=== PATIENT | female | born 1945 | race African-American/Black ===

== ENCOUNTER 2020-12-04 14:41 | Inpatient (IN) ==
--- NOTE | 2020-12-04 15:46 | Emergency Department Note ---
Impression & Plan Syncope, Hypokalemia, Hypocalcemia ED Provider Note INFORMANT: Patient ED PROVIDER(S): Jose Elizalde MD CHIEF COMPLAINT: Syncope PLAN: Disposition: Admitted Condition: Good Outpatient prescription management: none Referral: None MEDICAL DECISION MAKING: Patient presented to the emergency department because of a syncopal event. She was doing well and had a nonfocal examination in the ER. An ECG was performed and did not reveal any acute findings. The patient had a negative chest x-ray. Urinalysis was negative. Patient CBC was unremarkable. The patient chemistry panel was very concerning as she had hypocalcemia and hypokalemia of significant proportion. The patient and I discussed this. She was hydrated. The patient was given IV calcium as well as IV potassium. Given the events she needs further management in the hospital. Cardiac monitoring did not reveal any d ysrhythmia here. It is possible that she had some ill effects from her cyclobenzaprine but the electrolyte abnormalities will need further investigation. Consultation was made with the admitting hospitalist service. Patient was evaluated in the ER admitted for further management. Triage Nursing notes reviewed and agree them. Vital Signs: reviewed and remarkable for no significant abnormalities Differential diagnosis: Vasovagal event, dehydration, infection, hypoglycemia, electrolyte abnormalities, cardiac sources, intracerebral event, pulmonary embolism, seizure, toxicologic, neurologic, as well as other pathologies. Diagnostics interpreted by me: ECG:Rate:78 Rhythm:Normal sinus [place]:Normal QRS:Normal ST segements:No elevation or depression Other:No PACs or PVCs Cardiac Monitoring: Cardiac monitoring ordered by me: The patient was placed on continuous cardiac monitoring and observed. It revealed a normal sinus rhythm at 66 beats per minute without ectopy or evidence of dysrhythmia. Imaging studies: Chest x-ray. Findings: A chest x-ray was performed and revealed no pneumothorax, effusion, infiltrate, pulmonary edema, free air under the diaphragm, or wide mediastinum. Impression: No acute disease. HPI: The patient is a 75 year old female who presents to the Emergency Room with complaints of syncope. This started around 1330 today and is resolved. Patient reportedly briefly passed out or "fell asleep", nausea. Patient states she thought she was going to have an ocular migraine. She was seeing spots. She did not progress. She reportedly took a cyclobenzaprine at 1000. The patient also notes the following associated symptoms, feeling tired. The patient has been given no medication for relieving factors. Current pain is rated as 0/10. She was taking the muscle relaxer prescribed by urgent care for her back. Pt denies headache, fevers, chills, diaphoresis, visual changes, neck pain, chest pain, breathing difficulties, vomiting, abdominal pain, back pain, melena, h ematochezia, urinary symptoms, numbness, weakness, lymphadenopathy, rash, or other complaints. ROS: See above HPI for pertinent positives & negatives. A total of 10 systems reviewed and were otherwise negative. PAST MEDICAL HISTORY:See Below , kidney stones PAST SURGICAL HISTORY:See Below, FAMILY HISTORY:See Below SOCIAL HISTORY:See Below, retired HOME MEDICATIONS:See Below ALLERGIES:See Below VITALS:See Below PHYSICAL EXAMINATION: GENERAL: Awake, alert, well-appearing, in no distress HENT: Normocephalic, atraumatic. Oropharynx unremarkable. EYES: Normal conjunctiva. Sclera non-icteric. NECK: Inspection normal. Non-tender. Supple. No nuchal rigidity. FROM. No masses. RESPIRATORY: Clear to auscultation. No wheezes. No rales. Normal respiratory effort. CARDIAC: Normal rate. Normal rhythm. No murmurs. No rubs. Extremities warm and well perfused. Pulses equal. No JVD. GI: Soft, non-distended. No tenderness to palpation. No rebound or guarding. No masses. RECTAL: Deferred. MUSCULOSKELETAL: Atraumatic. Chest examination reveals no tenderness. The back is symmetrical on inspection without obvious abnormality. There is no CVA tenderness to palpation. No joint edema. LOWER EXTREMITIES: Calves are equal size bilaterally and non-tender. No edema. No discoloration. NEURO: Normal sensorium. No sensory or motor deficits noted. SKIN: No rash or jaundice noted. Jose Elizalde MD Past Med/Surg History Social History Smoking Status: Never smoker Feels Safe at Home: Yes Allergies Allergies Allergy/AdvReac Type Severity Reaction Status Date / Time caffeine AdvReac Intermediate Headache Verified 12/04/20 15:30 red dye AdvReac Intermediate Headache Verified 12/04/20 15:30 POLLEN Allergy Intermediate WATERY Uncoded 12/04/20 15:30 EYES, RUNNY NOSE, SNEEZING, COUGH Home Meds Home Medications Medication Instructions Recorded Confirmed amlodipine 5 mg tablet 5 mg PO DAILY 12/04/20 12/04/20 aspirin 81 mg tablet,delayed 81 mg PO DAILY 12/04/20 12/04/20 release cyclobenzaprine 10 mg tablet 5 - 10 mg PO TID PRN 12/04/20 12/04/20 famotidine 20 mg tablet 20 mg PO BID 12/04/20 12/04/20 multivitamin 1 tab PO DAILY 12/04/20 12/04/20 pravastatin 20 mg tablet 20 mg PO HS 12/04/20 12/04/20 prednisone 10 mg tablet 20 mg PO DAILY 12/04/20 12/04/20 Results & Data (ED) Vital Signs Vital Signs - 24 hr 12/04/20 14:45 12/04/20 15:08 12/04/20 16:43 Temperature 36.8 C Temperature Source Oral Pulse Rate 72 71 Pulse Rate from SpO2 Sensor 61 Pulse Rhythm Regular Pulse Strength Normal Respiratory Rate 16 22 Respiratory Effort / Characteristics Non-Labored Spontaneous Respiratory Depth Normal Respiratory Pattern Regular Blood Pressure 176/99 H 145/87 H Blood Pressure Mean 124 106 Blood Pressure Position Lying Pulse Oximetry 99 99 99 Oxygen Delivery Method Room Air Room Air Room Air Sepsis Recent Fever Within 48 Hours No Sepsis New/Unexplained Change in Mental Status N/A Sepsis Action Taken by Nursing No Action Required 12/04/20 17:21 12/04/20 17:30 12/04/20 17:45 Temperature Temperature Source Pulse Rate 66 75 76 Pulse Rate from SpO2 Sensor 67 74 76 Pulse Rhythm Pulse Strength Respiratory Rate 14 22 18 Respiratory Effort / Characteristics Respiratory Depth Respiratory Pattern Blood Pressure 145/91 H 145/87 H 142/87 H Blood Pressure Mean 109 106 105 Blood Pressure Position Pulse Oximetry 100 99 98 Oxygen Delivery Method Room Air Room Air Room Air Sepsis Recent Fever Within 48 Hours Sepsis New/Unexplained Change in Mental Status Sepsis Action Taken by Nursing 12/04/20 18:00 12/04/20 18:15 12/04/20 18:30 Temperature Temperature Source Pulse Rate 76 89 87 Pulse Rate from SpO2 Sensor 78 82 86 Pulse Rhythm Pulse Strength Respiratory Rate 15 18 17 Respiratory Effort / Characteristics Respiratory Depth Respiratory Pattern Blood Pressure 144/86 H 148/90 H 136/91 Blood Pressure Mean 105 109 106 Blood Pressure Position Pulse Oximetry 97 95 99 Oxygen Delivery Method Room Air Room Air Room Air Sepsis Recent Fever Within 48 Hours Sepsis New/Unexplained Change in Mental Status Sepsis Action Taken by Nursing 12/04/20 19:14 12/04/20 19:30 12/04/20 19:45 Temperature Temperature Source Pulse Rate 90 85 82 Pulse Rate from SpO2 Sensor 86 84 Pulse Rhythm Pulse Strength Respiratory Rate 22 17 18 Respiratory Effort / Characteristics Respiratory Depth Respiratory Pattern Blood Pressure 151/74 H 139/76 125/80 Blood Pressure Mean 99 97 95 Blood Pressure Position Pulse Oximetry 99 99 99 Oxygen Delivery Method Room Air Sepsis Recent Fever Within 48 Hours Sepsis New/Unexplained Change in Mental Status Sepsis Action Taken by Nursing 12/04/20 20:00 12/04/20 20:15 12/04/20 20:45 Temperature Temperature Source Pulse Rate 79 82 72 Pulse Rate from SpO2 Sensor 80 82 72 Pulse Rhythm Pulse Strength Respiratory Rate 14 17 15 Respiratory Effort / Characteristics Respiratory Depth Respiratory Pattern Blood Pressure 144/82 H 146/93 H 128/87 Blood Pressure Mean 102 110 100 Blood Pressure Position Pulse Oximetry 98 99 99 Oxygen Delivery Method Room Air Room Air Sepsis Recent Fever Within 48 Hours Sepsis New/Unexplained Change in Mental Status Sepsis Action Taken by Nursing 12/04/20 21:00 12/04/20 21:15 12/04/20 21:30 Temperature Temperature Source Pulse Rate 76 77 75 Pulse Rate from SpO2 Sensor 75 76 73 Pulse Rhythm Pulse Strength Respiratory Rate 24 13 15 Respiratory Effort / Characteristics Respiratory Depth Respiratory Pattern Blood Pressure 133/83 157/96 H 157/93 H Blood Pressure Mean 99 116 114 Blood Pressure Position Pulse Oximetry 99 99 98 Oxygen Delivery Method Room Air Room Air Room Air Sepsis Recent Fever Within 48 Hours Sepsis New/Unexplained Change in Mental Status Sepsis Action Taken by Nursing 12/04/20 21:46 12/04/20 21:50 12/04/20 22:00 Temperature Temperature Source Pulse Rate 84 77 80 Pulse Rate from SpO2 Sensor Pulse Rhythm Pulse Strength Respiratory Rate 15 24 13 Respiratory Effort / Characteristics Respiratory Depth Respiratory Pattern Blood Pressure Blood Pressure Mean Blood Pressure Position Pulse Oximetry 99 99 Oxygen Delivery Method Room Air Room Air Sepsis Recent Fever Within 48 Hours Sepsis New/Unexplained Change in Mental Status Sepsis Action Taken by Nursing 12/04/20 22:10 Temperature Temperature Source Pulse Rate 91 H Pulse Rate from SpO2 Sensor Pulse Rhythm Pulse Strength Respiratory Rate 21 Respiratory Effort / Characteristics Respiratory Depth Respiratory Pattern Blood Pressure Blood Pressure Mean Blood Pressure Position Pulse Oximetry 99 Oxygen Delivery Method Room Air Sepsis Recent Fever Within 48 Hours Sepsis New/Unexplained Change in Mental Status Sepsis Action Taken by Nursing Laboratory Data Result diagrams: 12/04/20 17:16 12/04/20 17:16 Lab Results 12/04/20 12/04/20 12/04/20 Range/Units 16:20 17:16 17:16 WBC 5.32 (4.8-10.8) K/uL RBC 4.26 (4.2-5.4) M/uL Hgb 12.7 (12.0-16.0) g/dL Hct 39.1 (37-47) % MCV 91.8 (80-100) fL MCH 29.8 (25-34) pg MCHC 32.5 (32-36) g/dL RDW Std Deviation 44.0 (36.4-46.3) fL RDW Coeff of Elinor 13.3 (11.5-14.5) % Plt Count 148 (130-400) K/uL MPV 10.9 H (7.4-10.4) fL Immature Gran % (Auto) 0.6 % Neut % (Auto) 62.3 % Lymph % (Auto) 29.3 % Richardson % (Auto) 6.8 % Eos % (Auto) 0.6 % Baso % (Auto) 0.4 % Neut # (Auto) 3.32 (1.4-6.5) K/uL Lymph # (Auto) 1.56 (1.2-3.4) K/uL Richardson # (Auto) 0.36 (0.11-0.59) K/uL Eos # (Auto) 0.03 (0-0.5) K/uL Baso # (Auto) 0.02 (0-0.2) K/uL Immature Gran # (Auto) 0.03 H (0.00-0.02) K/uL Sodium 148 H (136-145) mmol/L Potassium 2.4 L* (3.5-5.1) mmol/L Chloride 122 H (98-107) mmol/L Carbon Dioxide 21 (21-32) mmol/L Anion Gap 5.0 (3-11) BUN 10 (7-18) mg/dl Creatinine 0.38 L (0.6-1.2) mg/dl Est Cr Clr Drug Dosing 96.8 ml/min Est GFR ( Amer) 121.8 ml/min Est GFR (Non-Af Amer) 105.1 ml/min BUN/Creatinine Ratio 27.2 H (10-20) Glucose 75 (70-99) mg/dl Calcium 5.4 L* (8.5-10.1) mg/dl Magnesium 1.7 L (1.8-2.4) mg/dl Total Bilirubin 0.2 (0.2-1) mg/dl AST 11 L (15-37) U/L ALT 13 (12-78) U/L Alkaline Phosphatase 36 L (45-117) U/L Troponin I < 0.015 (0-0.045) ng/ml Total Protein 4.4 L (6.4-8.2) gm/dl Albumin 2.2 L (3.4-5.0) gm/dl Globulin 2.2 L (2.5-4.0) gm/dl Albumin/Globulin Ratio 1.0 (0.9-2) TSH 1.250 (0.300-4.500) uIu/ml Urine Color Yellow Urine Appearance Clear (Clear) Urine pH 8.0 H (4.5-7.5) Ur Specific [place] 1.012 (1.000-1.030) Urine Protein Negative (Negative) Urine Glucose (UA) Negative (Negative) Urine Ketones Negative (Negative) Urine Blood Negative (Negative) Urine Nitrite Negative (Negative) Urine Bilirubin Negative (Negative) Urine Urobilinogen Negative (Negative) Ur Leukocyte Esterase Negative (Negative) COVID-19 Eval Order SARS-CoV-2 (PCR) (Negative) 12/04/20 12/04/20 Range/Units 19:00 19:00 WBC (4.8-10.8) K/uL RBC (4.2-5.4) M/uL Hgb (12.0-16.0) g/dL Hct (37-47) % MCV (80-100) fL MCH (25-34) pg MCHC (32-36) g/dL RDW Std Deviation (36.4-46.3) fL RDW Coeff of Elinor (11.5-14.5) % Plt Count (130-400) K/uL MPV (7.4-10.4) fL Immature Gran % (Auto) % Neut % (Auto) % Lymph % (Auto) % Richardson % (Auto) % Eos % (Auto) % Baso % (Auto) % Neut # (Auto) (1.4-6.5) K/uL Lymph # (Auto) (1.2-3.4) K/uL Richardson # (Auto) (0.11-0.59) K/uL Eos # (Auto) (0-0.5) K/uL Baso # (Auto) (0-0.2) K/uL Immature Gran # (Auto) (0.00-0.02) K/uL Sodium (136-145) mmol/L Potassium (3.5-5.1) mmol/L Chloride (98-107) mmol/L Carbon Dioxide (21-32) mmol/L Anion Gap (3-11) BUN (7-18) mg/dl Creatinine (0.6-1.2) mg/dl Est Cr Clr Drug Dosing ml/min Est GFR ( Amer) ml/min Est GFR (Non-Af Amer) ml/min BUN/Creatinine Ratio (10-20) Glucose (70-99) mg/dl Calcium (8.5-10.1) mg/dl Magnesium (1.8-2.4) mg/dl Total Bilirubin (0.2-1) mg/dl AST (15-37) U/L ALT (12-78) U/L Alkaline Phosphatase (45-117) U/L Troponin I (0-0.045) ng/ml Total Protein (6.4-8.2) gm/dl Albumin (3.4-5.0) gm/dl Globulin (2.5-4.0) gm/dl Albumin/Globulin Ratio (0.9-2) TSH (0.300-4.500) uIu/ml Urine Color Urine Appearance (Clear) Urine pH (4.5-7.5) Ur Specific [place] (1.000-1.030) Urine Protein (Negative) Urine Glucose (UA) (Negative) Urine Ketones (Negative) Urine Blood (Negative) Urine Nitrite (Negative) Urine Bilirubin (Negative) Urine Urobilinogen (Negative) Ur Leukocyte Esterase (Negative) COVID-19 Eval Order Covid19 at [facility] SARS-CoV-2 (PCR) NEGATIVE (Negative) Administered Medications Discontinued Medications Calcium Gluconate (Calcium Gluconate 10% 10 Ml Vial) 1,000 mg IV NOW STA Stop: 12/04/20 18:06 Last Admin: 12/04/20 19:00 Dose: 1,000 mg Documented by: [id number] Calcium Gluconate (Calcium Gluconate 1000 Mg/60 Ml Nss) Confirm Administered Dose 1,000 mg IV .STK-MED ONE Stop: 12/04/20 18:28 Last Admin: 12/04/20 18:30 Dose: Not Given Documented by: [id number] Potassium Chloride (K Evaristo / Wtr) 10 meq in 100 mls @ 100 mls/hr IV ONE ONE Stop: 12/04/20 18:56 Last Infusion: 12/04/20 19:30 Dose: 0 mls/hr Documented by: [id number] Admin: 12/04/20 18:29 Dose: 100 mls/hr Documented by: [id number] Sodium Chloride (Nss 1000ml) 1,000 mls @ 75 mls/hr IV .[id number] STA Stop: 12/05/20 07:24 Last Infusion: 12/04/20 19:29 Dose: 0 mls/hr Documented by: [id number] Admin: 12/04/20 18:33 Dose: 75 mls/hr Documented by: [id number] Lactated Ringer's (Lr) 1,000 mls @ 80 mls/hr IV .[id number] Stop: 01/03/21 20:59 Last Admin: 12/04/20 23:22 Dose: Not Given Documented by: [id number] Imaging Data Radiologist's Impression: Chest X-Ray 12/04/20 15:08 XR chest 1V portable HISTORY: 75 years-old Female syncope, fatigue acute syncope with fatigue COMPARISON: Chest radiographs 10/03/2012 TECHNIQUE: Portable AP view of the chest FINDINGS: Cardiomediastinal and hilar silhouettes are within normal limits. No pneumothorax, pleural effusion, airspace consolidation or overt pulmonary edema. Degenerative changes of the shoulders and spine. IMPRESSION: No acute process. ACT 112: Negative or not required by law. The above report was generated using voice recognition software. It may contain grammatical, syntax or spelling errors. Electronically signed by: Tanner Vasquez M.D. 12/04/2020 5:35 PM Discharge Plan Visit Data Chief Complaint: Syncope Stated Complaint: SYNCOPE ED Provider: Jose Elizalde Discharge Problem: Syncope, Hypokalemia, Hypocalcemia Patient Disposition: Admitted As Inpatient Discharge Instructions Interventions: ED Discharge Assessment Last Done: 12/04/20 22:42
[2020-12-04 17:04] LABS: Appearance Urine Clear (Clear); Bilirubin Urine Negative (Negative); Blood Urine Negative (Negative); Color Urine Yellow; Glucose Urine UA Negative (Negative); Ketones Urine Negative (Negative); Leukocyte Esterase Urine Negative (Negative); Nitrite Urine Negative (Negative); Protein Urine Negative (Negative); Specific Gravity Urine 1.012 (1.000-1.030); Urobilinogen Urine Negative (Negative)
[2020-12-04 17:26] LABS: Basophils # (auto) 0.02 K/uL (0-0.2); Basophils % (auto) 0.4 %; Eosinophils # (auto) 0.03 K/uL (0-0.5); Eosinophils % (auto) 0.6 %; Hematocrit (blood only) 39.1 % (37-47); Hemoglobin 12.7 g/dL (12.0-16.0); Immature Granulocytes # (auto) 0.03 K/uL (0.00-0.02); Immature Granulocytes % (auto) 0.6 %; Lymphocytes # (auto) 1.56 K/uL (1.2-3.4); Lymphocytes % (auto) 29.3 %; Mean Corpuscular Hemoglobin 29.8 pg (25-34); Mean Corpuscular Hgb Conc 32.5 g/dL (32-36); Mean Corpuscular Volume 91.8 fL (80-100); Mean Platelet Volume 10.9 fL (7.4-10.4); Monocytes # (auto) 0.36 K/uL (0.11-0.59); Monocytes % (auto) 6.8 %; Neutrophils # (auto) 3.32 K/uL (1.4-6.5); Neutrophils % (auto) 62.3 %; Platelet Count 148 K/uL (130-400); RDW Coefficient of Variation 13.3 % (11.5-14.5); Red Blood Count 4.26 M/uL (4.2-5.4); White Blood Count 5.32 K/uL (4.8-10.8)
--- NOTE | 2020-12-04 17:36 | XRay Report ---
XR chest 1V portable HISTORY: 75 years-old Female syncope, fatigue acute syncope with fatigue COMPARISON: Chest radiographs 10/03/2012 TECHNIQUE: Portable AP view of the chest FINDINGS: Cardiomediastinal and hilar silhouettes are within normal limits. No pneumothorax, pleural effusion, airspace consolidation or overt pulmonary edema. Degenerative changes of the shoulders and spine. IMPRESSION: No acute process. ACT 112: Negative or not required by law. The above report was generated using voice recognition software. It may contain grammatical, syntax o r spelling errors. Electronically signed by: Tanner Vasquez M.D. 12/04/2020 5:35 PM
[2020-12-04 17:46] LABS: Alanine Aminotransferase 13 U/L (12-78); Albumin Level 2.2 gm/dl (3.4-5.0); Aspartate Aminotransferase 11 U/L (15-37); BUN Creatinine Ratio 27.2 (10-20); Blood Urea Nitrogen 10 mg/dl (7-18); Calcium 5.4 mg/dl (8.5-10.1); Carbon Dioxide 21 mmol/L (21-32); Chloride 122 mmol/L (98-107); Creatinine Clr Calc Pharmacy 96.8 ml/min; Est GFR (African American) 121.8 ml/min; Est GFR (Non-African American) 105.1 ml/min; Glucose 75 mg/dl (70-99); Magnesium 1.7 mg/dl (1.8-2.4); Potassium 2.4 mmol/L (3.5-5.1); Sodium 148 mmol/L (136-145)
[2020-12-04 17:55] LABS: Alkaline Phosphatase 36 U/L (45-117); Bilirubin,Total 0.2 mg/dl (0.2-1); Globulin 2.2 gm/dl (2.5-4.0); Total Protein 4.4 gm/dl (6.4-8.2); Troponin I < 0.015 ng/ml (0-0.045)
[2020-12-04] MEDS ORDERED: POTASSIUM CHLORIDE / WTR 10 MEQ/100 ML PLCT IV ONE (17:57)
[2020-12-04] MEDS ORDERED: CALCIUM GLUCONATE 10% 10 ML VIAL IV STA (18:05)
[2020-12-04] MEDS ORDERED: SODIUM CHLORIDE 0.9% 1000ML 1,000 ML IV STA (18:05)
[2020-12-04] MEDS ORDERED: CALCIUM GLUCONATE 1000 MG/60 ML NSS IV ONE (18:27)
--- NOTE | 2020-12-04 20:33 | History & Physical Report ---
Date of Service December 04, 2020 Assessment & Plan (1) Syncope: Plan: 75yo female with a history of renal cysts with hydronephrosis, nephrolithiasis, HTN, HLD, NAFLD, osteoporosis, and GERD presents with syncope. Syncope Patient with single episode of syncope preceded by visual changes without other prodromal symptoms, no post-ictal state EKG shows NSR without ischemic or electrolyte derangement-associated changes Differential includes vasovagal, arrhythmia secondary to electrolyte derangements, neurologic Initial troponin negative, low suspicion for ischemia [place] Syncope Risk Score: -2 points (very low risk of serious adverse events) Admit to med/surg telemetry Echo ordered for AM Replete electrolytes (see below) Repeat EKG in AM Hypokalemia Potassium 2.4 on admission, EKG as above Received KCl IV 10mEq in ED Cardiac monitoring as above KCl PO 60mEq x1 ordered, KCl rider 20mEq/bag added to LR (x2 bags) Continue magnesium repletion (see below) Cardiac monitoring as above Repeat BMP and EKG in AM Hypernatremia Sodium 148 on admission Started on NSS in the ED, discontinued and replaced with LR@80mL/hr Free water deficit 0.5L No intervention indicated, repeat BMP in AM Hypocalcemia Calcium 5.4 on admission, albumin 2.2, corrected calcium 6.8 Received calcium gluconate IV 1000mg in ED, no further intervention indicated at this time Ionized calcium level ordered for AM Hypomagnesemia Magnesium 1.7 on admission Mag oxide PO 400mg x1 given, mag sulfate IV 2g ordered Repeat magnesium level in AM, phos level in AM History of bilateral renal cysts Given this history and the above electrolyte derangements, will consult nephrology Back pain Patient seen over the weekend at urgent care for back pain, improved with prednisone and cyclobenzaprine Pain only 2/10 at this time Hold prednisone and cyclobenzaprine pending further workup APAP prn HTN BP 176/99 on arrival, improved to 140s/80s Continue home amlodipine HLD Continue home pravastatin, ASA NAFLD Transaminases not elevated on admission, no intervention indicated GERD Continue home famotidine FEN: heart healthy diet, LR@80mL/hr with KCl 20mEq added, x2 bags Code status: full code, I discussed this with patient DVT ppx: SCD's Held home meds: prednisone, cyclobenzaprine Isolation: none Consults: nephrology PT/OT: ordered Dispo: med/surg telemetry Plan: Patient seen and examined, chart reviewed, case discussed with Dr. Hernández and I agree with his assessment and plan as above. Briefly, patient is a 75yo AA female presenting after a syncopal event. Labs obtained in the ER revealed several electrolyte disturbances to include hypernatremia, hypokalemia, hypomagnesemia and hypocalcemia. Patient was at a luncheon when she had a syncopal event. She denies chest pain, palpitations, incontinence. No seizure activity reported. Uncertain duration o f event. No history of prior syncope. Initial labs drawn at 17:16 revealed Na of 148, K of 2.4, Mg of 1.7, Cl of 122. Patient was administered - Calcium gluconate x 1gm, KCl x 70mEq, and Magnesium x 1 gm. A repeat BMP and Mg obtained at 23:27 revealed normal electrolytes: Na of 136, K of 3.8, Cl of 107, Ca of 8.4 (low but improved), PO4 of 4.1 and Mg of 2.2. Uncertain if initial labs were correct as labs seemed to have normalized rather quickly? Patient is doing well. She seems somewhat anxious about her health. Exam is unremarkable. She is nontoxic in appearance, NAD, resting comfortably Skin - warm, dry, intact, no rashes or lesions HEENT - NC/AT, PERRL, MMM, Neck supple, No JVD Heart - +S1/S2, regular, no m/r/g Lungs - CTA, no rales/rhonchi/wheezes Abd- +BS, soft, NT/ND Ext - Warm, well perfused, no clubbing/cyanosis or edema Neuro - No focal deficits, patient ambulates without difficulty Labs and images reviewed, discussed briefly above Assessment/Plan Syncope - possibly vasovagal syncope. EKG with normal intervals, waveforms, troponin is negative. Will monitor on telemetry, check orthostatic VS x 1, check 2D echo and carotid dopplers. Electrolyte derangements as described above - seemingly normalized on repeat blood work. Will cease further potassium repletion for now. Repeat chemistry in AM. WIll request labs from outpatient offices - patient follows with Dr. Aiden Sharp at [facility]. Nephrology consultation appreciated Remainder of plan as above History of Present Illness Chief Complaint: syncope Primary Care Provider: Melodie DariusYamila 75yo female with a history of renal cysts with hydronephrosis, nephrolithiasis, HTN, HLD, NAFLD, osteoporosis, and GERD presents via EMS transport after a syncopal episode. Patient was at a university-hosted lunch with colleagues when she developed blurry vision and seeing white dots in her visual field before passing out. Patient was told by colleagues that she was down for a couple seconds and that they thought she was asleep. When patient came to, she had no confusion or post-ictal state, though she does endorse minimal weakness upon standing after she regained consciousness. Patient reports she has never passed out before and has no history of seizure, arrhythmia, or stroke. Patient denies current or recent fever, fatigue, CP, SOB, congestion, cough, abdominal pain, vomiting, diarrhea, dysuria, tingling, or other symptoms. Patient was seen at urgent care over the weekend for back pain and was prescribed prednisone and cyclobenzaprine, which improved patient's pain. Back pain at this time is 05/07. Patient was also seen yesterday by her [facility] PCP for thumb pain thought to be due to trigger finger. Patient has a history of bilateral renal cysts with hydronephrosis, which is monitored by her urologist at [facility] in [facility]. Patient is unsure what type of monitoring or testing they perform, but hasn't seen her urologist since March. Allergies Allergy/AdvReac Type Severity Reaction Status Date / Time caffeine AdvReac Intermediate Headache Verified 12/04/20 15:30 red dye AdvReac Intermediate Headache Verified 12/04/20 15:30 POLLEN Allergy Intermediate WATERY Uncoded 12/04/20 15:30 EYES, RUNNY NOSE, SNEEZING, COUGH Home Medications Medication Instructions Recorded Confirmed Type amlodipine 5 mg tablet 5 mg PO DAILY 12/04/20 12/04/20 History aspirin 81 mg tablet,delayed 81 mg PO DAILY 12/04/20 12/04/20 History release cyclobenzaprine 10 mg tablet 5 - 10 mg PO TID PRN 12/04/20 12/04/20 History famotidine 20 mg tablet 20 mg PO BID 12/04/20 12/04/20 History multivitamin 1 tab PO DAILY 12/04/20 12/04/20 History pravastatin 20 mg tablet 20 mg PO HS 12/04/20 12/04/20 History prednisone 10 mg tablet 20 mg PO DAILY 12/04/20 12/04/20 History Past Med/Surg History Medical History (Updated 12/05/20 @ 02:39 by Mirian Davidson DO) GERD (gastroesophageal reflux disease) Hyperlipidemia Hypertension Nephrolithiasis Non-alcoholic fatty liver disease Osteoporosis Surgical History (Updated 12/05/20 @ 02:39 by Mirian Davidson DO) History of knee surgery Family History (Updated 12/05/20 @ 02:40 by Mirian Davidson DO) Other Family history non-contributory Social History Smoking Status: Never smoker Hx Alcohol Use: No Hx Substance Use: No Preferred Language: Ukrainian Communication Ability: Effective Typing Checker Required: No Beliefs That Will Affect Care: None Current Living Situation: Alone Feels Safe at Home: Yes Safety Concerns: Feels Safe At This Time Assistive Devices: None Review of Systems Review of Systems: See HPI Physical Exam Physical Exam: General: patient resting comfortably, NAD, non-toxic in appearance, AA&O x 4 Skin: warm, dry, intact, no rashes or lesions HEENT: NC/AT, PERRL, EOMI, anicteric sclera, conjunctiva without injection, external ear normal to inspection and nontender, nares patent, moist mucus membranes, dentition intact, no oropharyngeal lesions, neck supple, trachea midline, no LAD, no thyromegaly, no JVD Heart: +S1/S2, regular, no m/r/g Lungs: equal air entry bilaterally, no rales/rhonchi/wheezes Abd: +BS, soft, NT/ND, no masses/organomegaly/ascites Ext: warm, 2+ pulses in UE/LE bilaterally, no clubbing/cyanosis or edema Neuro: nonfocal, patient AA&O x 4, speech intact, no facial droop, moving all extremities on command with equal strength 5/5 Results & Data Results & Data ([facility]) Vital Signs (Past 12 Hours) Vital Signs Temp Pulse Resp BP Pulse Ox 12/04/20 20:00 79 14 144/82 H 98 12/04/20 19:45 82 18 125/80 99 12/04/20 19:30 85 17 139/76 99 12/04/20 19:14 90 22 151/74 H 99 12/04/20 18:30 87 17 136/91 99 12/04/20 18:15 89 18 148/90 H 95 12/04/20 18:00 76 15 144/86 H 97 12/04/20 17:45 76 18 142/87 H 98 12/04/20 17:30 75 22 145/87 H 99 12/04/20 17:21 66 14 145/91 H 100 12/04/20 16:43 71 22 145/87 H 99 12/04/20 15:08 99 12/04/20 14:45 36.8 C 72 16 176/99 H 99 Laboratory Results Laboratory Results WBC 5.32 K/uL (4.8-10.8) 12/04/20 17:16 RBC 4.26 M/uL (4.2-5.4) 12/04/20 17:16 Hgb 12.7 g/dL (12.0-16.0) 12/04/20 17:16 Hct 39.1 % (37-47) 12/04/20 17:16 MCV 91.8 fL (80-100) 12/04/20 17:16 MCH 29.8 pg (25-34) 12/04/20 17:16 MCHC 32.5 g/dL (32-36) 12/04/20 17:16 RDW Std Deviation 44.0 fL (36.4-46.3) 12/04/20 17:16 RDW Coeff of Elinor 13.3 % (11.5-14.5) 12/04/20 17:16 Plt Count 148 K/uL (130-400) 12/04/20 17:16 MPV 10.9 fL (7.4-10.4) H 12/04/20 17:16 Immature Gran % (Auto) 0.6 % 12/04/20 17:16 Neut % (Auto) 62.3 % 12/04/20 17:16 Lymph % (Auto) 29.3 % 12/04/20 17:16 [place] % (Auto) 6.8 % 12/04/20 17:16 Eos % (Auto) 0.6 % 12/04/20 17:16 Baso % (Auto) 0.4 % 12/04/20 17:16 Neut # (Auto) 3.32 K/uL (1.4-6.5) 12/04/20 17:16 Lymph # (Auto) 1.56 K/uL (1.2-3.4) 12/04/20 17:16 [place] # (Auto) 0.36 K/uL (0.11-0.59) 12/04/20 17:16 Eos # (Auto) 0.03 K/uL (0-0.5) 12/04/20 17:16 Baso # (Auto) 0.02 K/uL (0-0.2) 12/04/20 17:16 Immature Gran # (Auto) 0.03 K/uL (0.00-0.02) H 12/04/20 17:16 Sodium 136 mmol/L (136-145) D 12/04/20 23:27 Potassium 3.8 mmol/L (3.5-5.1) D 12/04/20 23:27 Chloride 107 mmol/L (98-107) 12/04/20 23:27 Carbon Dioxide 29 mmol/L (21-32) 12/04/20 23:27 Anion Gap 0 (3-11) L 12/04/20 23:27 BUN 13 mg/dl (7-18) 12/04/20 23:27 Creatinine 0.88 mg/dl (0.6-1.2) D 12/04/20 23:27 Est Cr Clr Drug Dosing 41.8 ml/min 12/04/20 23:27 Est GFR ( Amer) 75.5 ml/min 12/04/20 23:27 Est GFR (Non-Af Amer) 65.2 ml/min 12/04/20 23:27 BUN/Creatinine Ratio 14.8 (10-20) 12/04/20 23:27 Glucose 92 mg/dl (70-99) 12/04/20 23:27 Calcium 8.4 mg/dl (8.5-10.1) L D 12/04/20 23:27 Phosphorus 4.1 mg/dl (2.5-4.9) 12/04/20 23:27 Magnesium 2.2 mg/dl (1.8-2.4) 12/04/20 23:27 Total Bilirubin 0.2 mg/dl (0.2-1) 12/04/20 17:16 AST 11 U/L (15-37) L 12/04/20 17:16 ALT 13 U/L (12-78) 12/04/20 17:16 Alkaline Phosphatase 36 U/L (45-117) L 12/04/20 17:16 Troponin I < 0.015 ng/ml (0-0.045) 12/04/20 17:16 Total Protein 4.4 gm/dl (6.4-8.2) L 12/04/20 17:16 Albumin 2.2 gm/dl (3.4-5.0) L 12/04/20 17:16 Globulin 2.2 gm/dl (2.5-4.0) L 12/04/20 17:16 Albumin/Globulin Ratio 1.0 (0.9-2) 12/04/20 17:16 TSH 1.250 uIu/ml (0.300-4.500) 12/04/20 17:16 Urine Color Yellow 12/04/20 16:20 Urine Appearance Clear (Clear) 12/04/20 16:20 Urine pH 8.0 (4.5-7.5) H 12/04/20 16:20 Ur Specific Royal 1.012 (1.000-1.030) 12/04/20 16:20 Urine Protein Negative (Negative) 12/04/20 16:20 Urine Glucose (UA) Negative (Negative) 12/04/20 16:20 Urine Ketones Negative (Negative) 12/04/20 16:20 Urine Blood Negative (Negative) 12/04/20 16:20 Urine Nitrite Negative (Negative) 12/04/20 16:20 Urine Bilirubin Negative (Negative) 12/04/20 16:20 Urine Urobilinogen Negative (Negative) 12/04/20 16:20 Ur Leukocyte Esterase Negative (Negative) 12/04/20 16:20 COVID-19 Eval Order Covid19 at [facility] 12/04/20 19:00 SARS-CoV-2 (PCR) NEGATIVE (Negative) 12/04/20 19:00 Impressions Chest X-Ray 12/04/20 15:08 XR chest 1V portable HISTORY: 75 years-old Female syncope, fatigue acute syncope with fatigue COMPARISON: Chest radiographs 10/03/2012 TECHNIQUE: Portable AP view of the chest FINDINGS: Cardiomediastinal and hilar silhouettes are within normal limits. No pneumothorax, pleural effusion, airspace consolidation or overt pulmonary edema. Degenerative changes of the shoulders and spine. IMPRESSION: No acute process. ACT 112: Negative or not required by law. The above report was generated using voice recognition software. It may contain grammatical, syntax or spelling errors. Electronically signed by: Tanner Vasquez M.D. 12/04/2020 5:35 PM ECG Additional Comments: EKG with NSR at 78, DS=290, QRS=78, CIi=998, no acute ischemic changes present Resident Activity Tracking Resident Involvement: Resident Care Provided Care Provided: Adult Hospital Medicine
[2020-12-04] MEDS ORDERED: MAGNESIUM OXIDE 400 MG TAB PO SCH (20:55)
[2020-12-04] MEDS ORDERED: LACTATED RINGER'S 1,000 ML IV SCH (21:00)
[2020-12-04] MEDS ORDERED: POTASSIUM CHLORIDE CRTAB 20 MEQ TABCR PO STA (21:59)
[2020-12-04] MEDS ORDERED: POTASSIUM CHLORIDE 20 MEQ in LACTATED RINGER'S 1,000 ML IV SCH (22:00)
[2020-12-04] MEDS ORDERED: ALUMINUM/MAGNESIUM SUSP 30 ML UDC PO PRN (23:20)
[2020-12-04] MEDS ORDERED: ACETAMINOPHEN 325 MG TAB PO PRN (23:20)
[2020-12-04] MEDS ORDERED: FAMOTIDINE 20 MG TAB PO SCH (23:20)
[2020-12-04] MEDS ORDERED: POLYETHYLENE (MIRALAX) 17 GM PACK PO PRN (23:20)
[2020-12-04] MEDS ORDERED: MAGNESIUM HYDROXIDE SUSP 30 ML UDC PO PRN (23:20)
[2020-12-04] MEDS ORDERED: PRAVASTATIN SOD 20 MG TAB PO SCH (23:20)
[2020-12-05 00:17] LABS: BUN Creatinine Ratio 14.8 (10-20); Calcium 8.4 mg/dl (8.5-10.1); Creatinine Clr Calc Pharmacy 41.8 ml/min; Est GFR (African American) 75.5 ml/min; Est GFR (Non-African American) 65.2 ml/min; Magnesium 2.2 mg/dl (1.8-2.4); Phosphorus 4.1 mg/dl (2.5-4.9); Potassium 3.8 mmol/L (3.5-5.1)
[2020-12-05] MEDS: amLODIPine BESYLATE 5 MG TAB PO SCH ×3 (01:42→09:31)
[2020-12-05] MEDS: MAGNESIUM SULFATE / D5W 1 GM/100 ML BAG IV SCH ×2 (01:58→08:59)
[2020-12-05] MEDS ORDERED: LACTATED RINGER'S 1,000 ML IV SCH (02:45)
--- NOTE | 2020-12-05 02:57 | Billing Data ---
Date of Service December 05, 2020 Coding Level of Care Code 38750 Initial Inpt Care Lvl 3
--- NOTE | 2020-12-05 06:42 | Ultrasound Report ---
CAROTID ARTERY ULTRASOUND CLINICAL HISTORY: syncope COMPARISON STUDY: None. TECHNIQUE: Real-time, grayscale, and color Doppler sonography of the carotid and vertebral arteries w as performed. Images were viewed in the transverse and longitudinal planes. FINDINGS: There is minimal atherosclerotic plaque. Velocity measurements are listed below. COMMON CAROTID PEAK SYSTOLIC VELOCITY (CM/S): RIGHT 66 LEFT 69 ICA PEAK SYSTOLIC VELOCITY (CM/S): RIGHT 76 LEFT 48 Systolic ratios between the internal to common carotid arteries were normal. Antegrade flow is seen in the vertebral arteries. The external carotid arteries are patent. IMPRESSION: No evidence for a hemodynamically significant stenosis. ACT 112: Negative or not required by law. Electronically signed by: Arjun Dykes M.D. 12/05/2020 6:41 AM
[2020-12-05 08:19] LABS: Basophils # (auto) 0.01 K/uL (0-0.2); Basophils % (auto) 0.2 %; Hematocrit (blood only) 37.3 % (37-47); Hemoglobin 12.4 g/dL (12.0-16.0); Immature Granulocytes # (auto) 0.04 K/uL (0.00-0.02); Immature Granulocytes % (auto) 0.8 %; Mean Corpuscular Hemoglobin 30.5 pg (25-34); Mean Corpuscular Hgb Conc 33.2 g/dL (32-36); Mean Corpuscular Volume 91.9 fL (80-100); Mean Platelet Volume 11.3 fL (7.4-10.4); Monocytes # (auto) 0.44 K/uL (0.11-0.59); Monocytes % (auto) 8.8 %; Neutrophils # (auto) 2.51 K/uL (1.4-6.5); Neutrophils % (auto) 50.2 %; Platelet Count 156 K/uL (130-400); RDW Coefficient of Variation 13.2 % (11.5-14.5); RDW Standard Deviation 44.5 fL (36.4-46.3); Red Blood Count 4.06 M/uL (4.2-5.4)
[2020-12-05 08:34] LABS: Estimated Average Glucose 117 mg/dl; Hemoglobin A1C 5.7 % (4.5-5.6)
[2020-12-05] MEDS ORDERED: amLODIPine BESYLATE 5 MG TAB PO SCH ×2 (09:00→21:00)
[2020-12-05] MEDS ORDERED: ASPIRIN 81 MG ECTAB PO SCH (09:00)
[2020-12-05] MEDS ORDERED: FAMOTIDINE 20 MG TAB PO SCH (09:00)
[2020-12-05] MEDS ORDERED: Nursing to Pharmacy Communication SCH (09:00)
[2020-12-05 09:06] LABS: BUN Creatinine Ratio 14.8 (10-20); Calcium 8.5 mg/dl (8.5-10.1); Creatinine Clr Calc Pharmacy 53.6 ml/min; Est GFR (African American) 93.2 ml/min; Est GFR (Non-African American) 80.4 ml/min
[2020-12-05 09:24] LABS: Phosphorus 3.5 mg/dl (2.5-4.9)
--- NOTE | 2020-12-05 11:34 | XCELERA ---
[id number]
--- NOTE | 2020-12-05 13:28 | Discharge Summary ---
Date of Service December 05, 2020 Admission HPI Per Admitting Provider 75yo female with a history of renal cysts with hydronephrosis, nephrolithiasis, HTN, HLD, NAFLD, osteoporosis, and GERD presents via EMS transport after a syncopal episode. Patient was at a university-hosted lunch with colleagues when she developed blurry vision and seeing white dots in her visual field before passing out. Patient was told by colleagues that she was down for a couple seconds and that they thought she was asleep. When patient came to, she had no confusion or post-ictal state, though she does endorse minimal weakness upon standing after she regained consciousness. Patient reports she has never passed out before and has no history of seizure, arrhythmia, or stroke. Patient denies current or recent fever, fatigue, CP, SOB, congestion, cough, abdominal pain, vomiting, diarrhea, dysuria, tingling, or other symptoms. Patient was seen at urgent care over the weekend for back pain and was prescribed prednisone and cyclobenzaprine, which improved patient's pain. Back pain at this time is 05/07. Patient was also seen yesterday by her [facility] PCP for thumb pain thought to be due to trigger finger. Patient has a history of bilateral renal cysts with hydronephrosis, which is monitored by her urologist at [facility] in [place] [facility]. Patient is unsure what type of monitoring or testing they perform, but hasn't seen her urologist since March. Admission Exam Per Admitting Provider General: patient resting comfortably, NAD, non-toxic in appearance, AA&O x 4 Skin: warm, dry, intact, no rashes or lesions HEENT: NC/AT, PERRL, EOMI, anicteric sclera, conjunctiva without injection, external ear normal to inspection and nontender, nares patent, moist mucus membranes, dentition intact, no oropharyngeal lesions, neck supple, trachea midline, no LAD, no thyromegaly, no JVD Heart: +S1/S2, regular, no m/r/g Lungs: equal air entry bilaterally, no rales/rhonchi/wheezes Abd: +BS, soft, NT/ND, no masses/organomegaly/ascites Ext: warm, 2+ pulses in UE/LE bilaterally, no clubbing/cyanosis or edema Neuro: nonfocal, patient AA&O x 4, speech intact, no facial droop, moving all extremities on command with equal strength 5/5 Principal Diagnosis Syncope, multipl electrolyte derangements Discharge Exam GENERAL: A&Ox3. NAD. HEENT: PERRL, EOMI. Moist mucous membranes. CHEST/LUNGS: CTAB A/P. No crackles, wheezes, rales, rhonchi. HEART: RRR. No m/g/r. No carotid bruits. ABDOMEN: NT/ND, soft. BS+ x4 EXTREMITIES: No cyanosis, no clubbing, no edema SKIN: Warm and dry. No rashes or lesions. PSYCHIATRIC: Euthymic affect, no SI, no pressured speech, no hallucinations NEUROLOGIC: CN II-XII grossly intact. Moves all 4 extremities equally. No FND. Discharge Data Allergies Allergy/AdvReac Type Severity Reaction Status Date / Time caffeine AdvReac Intermediate Headache Verified 12/04/20 15:30 red dye AdvReac Intermediate Headache Verified 12/04/20 15:30 POLLEN Allergy Intermediate WATERY Uncoded 12/04/20 15:30 EYES, RUNNY NOSE, SNEEZING, COUGH Consultations 12/04/20 19:48 ED Decision to Admit Stat 12/04/20 22:19 Consult Nephrology Stat 12/04/20 22:35 Consult Health Information Management Stat Ordered Studies 12/05/20 02:44 US carotid doppler BI Routine Hospital Course (1) Syncope: 75yo female with a history of renal cysts with hydronephrosis, nephro lithiasis, HTN, HLD, NAFLD, osteoporosis, and GERD presents with syncope. Syncope Patient with single episode of syncope preceded by visual changes without other prodromal symptoms, no post-ictal state EKG shows NSR without ischemic or electrolyte derangement-associated changes Differential includes vasovagal, arrhythmia secondary to electrolyte derangements, neurologic Initial troponin negative, low suspicion for ischemia [place] Syncope Risk Score: -2 points (very low risk of serious adverse events) Echocardiogram with normal function, no concerning findings Likely vasovagal/dehydration, less likely cardiac or neurologic issues Can consider cardiac monitoring as outpatient but no arrhythmia noted on telemetry in hospital and NSR on EKG Recommend repeat BMP in one week to monitor electrolytes Hypokalemia Potassium 2.4 on admission, EKG as above Received KCl IV 10mEq in ED KCl PO 60mEq x1 ordered, KCl rider 20mEq/bag added to LR (x2 bags) Potassium normalized on discharge Hypernatremia Sodium 148 on admission Started on NSS in the ED, discontinued and replaced with LR@80mL/hr Free water deficit 0.5L Normalized at discharge Hypocalcemia Calcium 5.4 on admission, albumin 2.2, corrected calcium 6.8 Received calcium gluconate IV 1000mg in ED, no further intervention indicated at this time Ionized calcium level of 1.10 Normal serum calcium at discharge Hypomagnesemia Magnesium 1.7 on admission Mag oxide PO 400mg x1 given, mag sulfate IV 2g ordered Magnesium normalized on discharge and Phos normal as well History of bilateral renal cysts Can follow as outpatient with usual Urologist HTN Continued home amlodipine HLD Continued home pravastatin, ASA NAFLD Transaminases not elevated on admission, no intervention indicated GERD Continued home famotidine Dispo: Home -- Self-care Total Time Total Time Spent Total Time Spent (In Minutes): see attending attestation Discharge Plan Discharge Items Patient Disposition: Home - Self-Care Reason For Visit: SYNCOPE Discharge Diagnosis: Syncope, electrolyte derangements Activity: Per Instructions section Non-emergency contact: Primary Care Provider and Urologist Call non-emergency contact if: your symptoms worsen Follow-up/Referrals: Zach Mercado DO [Physician] - Melodie Ba MD [Primary Care Provider] - Diet: Regular Addtl Attending Provider Instructions: You were admitted to [facility] due to ainting spell. When you came to the hospital you were found to have several low electrolytes as well as being dehydrated. As such, you were given IV fluids and electrolyte repletion. For your fainting, you had an EKG and echocardiogram done to rule out a cardiac cause. Both of these were normal and, as such, it is more likely that your fainting was due to dehydration/vasovagal. However, we still do recommend discussing the possibility of cardiac monitoring as an outpatient with your PCP. Make sure to stay hydrated at home and ease back into your exercise routine. Otherwise, you should be able to continue your daily activities as normal. Please contact your PCP and your urologist for follow-up as an outpatient and discussion of your hospitalization. If you develop any further concnerning symptoms or have repeated episodes of fainting, please return to the hospital. Pending Studies at Discharge: No Stand-Alone Forms: My [facility], Smoking Cessation Medications and DC Order Prescriptions: Continued multivitamin Tablet 1 tab PO DAILY RF: 0 cyclobenzaprine 10 mg tablet 5 - 10 mg PO TID PRN (Reason: MUSCLE SPASMS) RF: 0 prednisone 10 mg tablet 20 mg PO DAILY RF: 0 amlodipine 5 mg tablet 5 mg PO DAILY RF: 0 aspirin 81 mg Tablet,Delayed Release (Dr/Ec) 81 mg PO DAILY RF: 0 famotidine 20 mg tablet 20 mg PO BID RF: 0 pravastatin 20 mg tablet 20 mg PO HS RF: 0 Discharge Orders: Discharge Order (Routine); Ordered 12/05/20 [facility]: [facility] Ad[facility] Data Admit Date/Time: 12/04/20 21:04 Attending Provider: Wilfredo Pickard Admit Provider: Elmer Hernández Primary Care Provider: Melodie Ba Other Providers: Rabia Davidson ; Juan Pacheco ; Amaury Kellogg ; Angella Moon ; Macho Alejandre ; Mirian Davidson Other Interventions: Discharge Summary Assessment (RN) Last Done: 12/05/20 13:28 Supervising Physician Co-Signing Physician Notes Patient seen and examined with PGY-2 Dr. Forrest. Agree with history, exam findi ngs, assessment and plan of care as outlined. In brief, Mariela is a 75 year old female with history of osteoporosis, HLD, HTN, NAFD, renal cysts with hydronephrosis (followed by urology at in [place], [place]) admitted following a syncopal episode. Syncope work up was unremarkable with the exception of deranged electrolytes. In particular Echo with only trace mitral regurg, carotid doppler without significant atherosclerosis. Can consider outpatient cardiac cath rn. Hypomag and hypokalemia. electrolyte were repleted. Unclear etiology of electrolyte abnormalities. May be secondary to dehydration. Hypocalcemia. Ionized calcium is just slightly below normal limit Recommend repeat BMP in 1 week. Other chronic issues were stable and home medication were continued. Follow up with PCP in [place] in 1 week. I personally spent 30 minutes discharge planning for this patient. Resident Activity Tracking Resident Involvement: Resident Care Provided Care Provided: Adult Hospital Medicine
--- NOTE | 2020-12-05 15:16 | Electrocardiogram Report ---
Test Reason : Blood Pressure : / mmHG Vent. Rate : 078 BPM Atrial Rate : 078 BPM P-R Int : 166 ms QRS Dur : 078 ms QT Int : 402 ms P-R-T Axes : 075 -20 060 degrees QTc Int : 458 ms Normal sinus rhythm Minimal voltage criteria for LVH, may be normal variant Borderline ECG When compared with ECG of 21-DEC-1997 13:39, ID interval has decreased ST no longer elevated in Anterior leads Confirmed by Nehemiah Da Silva ([id number]) on 12/05/2020 3:15:44 PM Referred By: REFERRED SELF Confirmed By:Nino Da Silva
--- NOTE | 2020-12-05 18:01 | Electrocardiogram Report ---
Test Reason : Blood Pressure : / mmHG Vent. Rate : 071 BPM Atrial Rate : 071 BPM P-R Int : 200 ms QRS Dur : 080 ms QT Int : 404 ms P-R-T Axes : 074 001 053 degrees QTc Int : 439 ms Normal sinus rhythm Normal ECG When compared with ECG of 04-DEC-2020 15:42, (unconfirmed) No significant change was found Confirmed by Nehemiah Da Silva ([id number]) on 12/05/2020 6:00:39 PM Referred By: REFERRED SELF Confirmed By:Nino Da Silva
== END 2020-12-05 14:44 | disposition home or self-care (01) | DRG 312 ==
LOC: ED 14:41 → 2N 14:41 → SUATTDRO 22:19 → OBSVTOIN 22:19 → 2N 22:42